=== PATIENT | male | born 1970 | race Caucasian/White ===

== ENCOUNTER 2019-08-25 10:16 | Outpatient (CLI) | payer OTHER, SELFPAY ==
--- NOTE | 2019-08-25 10:25 | EST_ITS ---
Patient Info Name: Elliot Cancino Age: 49 years : 1970 Gender: Male Ht: 72 in Wt: 245 lbs BSA: 2.41 m2 Exam Date: 08/25/2019 10:33 AM Exam Location: [facility] ([place] Stress Patient Status: Outpatient Admit Date: 08/25/2019 Staff Ordering Physician: Delvis Salazar DO Attending Provider: Delvis Salazar DO Exercise Technologist: Demi Mcpherson RDCS Exercise Physician: Jorge Gomez DO Exam Type: CA stress test treadmill Study Info Indications R07.89 - Other chest pain A treadmill exercise stress test was performed. Summary 1. 1. Negative Eric exercise stress test for ischemic ST changes by ECG criteria. 2. 2. Good functional capacity, achieving 10 METs of workload. 3. 3. Appropriate HR response to exercise. 4. 4. Appropriate HR recovery at 1 minute post exercise. 5. 5. No imaging with stress testing. 6. 6. Patient informed of the above results. Protocol: Eric Stress ECG Details Stage: REST Duration (min): 5 min : 40 sec Speed (mph): 0.0 Grade (%): 0 HR (bpm): 66 SBP (mmHg): 135 DBP (mmHg): 91 METS: --- Stage: REST Duration (min): 23 min : 10 sec Speed (mph): 0.0 Grade (%): 0 HR (bpm): 74 SBP (mmHg): 135 DBP (mmHg): 91 METS: --- Stage: STAGE 1 Duration (min): 1 min : 0 sec Speed (mph): 1.7 Grade (%): 10 HR (bpm): 106 SBP (mmHg): 135 DBP (mmHg): 91 METS: --- Stage: STAGE 1 Duration (min): 2 min : 0 sec Speed (mph): 1.7 Grade (%): 10 HR (bpm): 114 SBP (mmHg): 135 DBP (mmHg): 91 METS: --- Stage: STAGE 1 Duration (min): 3 min : 0 sec Speed (mph): 1.7 Grade (%): 10 HR (bpm): 117 SBP (mmHg): 183 DBP (mmHg): 92 METS: --- Stage: STAGE 2 Duration (min): 1 min : 0 sec Speed (mph): 2.5 Grade (%): 12 HR (bpm): 129 SBP (mmHg): 183 DBP (mmHg): 92 METS: --- Stage: STAGE 2 Duration (min): 2 min : 0 sec Speed (mph): 2.5 Grade (%): 12 HR (bpm): 142 SBP (mmHg): 165 DBP (mmHg): 86 METS: --- Stage: STAGE 2 Duration (min): 3 min : 0 sec Speed (mph): 2.5 Grade (%): 12 HR (bpm): 151 SBP (mmHg): 165 DBP (mmHg): 86 METS: --- Stage: STAGE 3 Duration (min): 1 min : 0 sec Speed (mph): 3.4 Grade (%): 14 HR (bpm): 156 SBP (mmHg): 156 DBP (mmHg): 96 METS: --- Stage: STAGE 3 Duration (min): 2 min : 0 sec Speed (mph): 3.4 Grade (%): 14 HR (bpm): 163 SBP (mmHg): 156 DBP (mmHg): 96 METS: --- Stage: STAGE 3 Duration (min): 3 min : 0 sec Speed (mph): 3.4 Grade (%): 14 HR (bpm): 167 SBP (mmHg): 185 DBP (mmHg): 84 METS: --- Stage: RECOVERY Duration (min): 0 min : 59 sec Speed (mph): 0.0 Grade (%): 0 HR (bpm): 133 SBP (mmHg): 145 DBP (mmHg): 82 METS: --- Stage: RECOVERY Duration (min): 1 min : 59 sec Speed (mph):
== END 2019-08-25 10:17 | disposition home or self-care (01) ==
PROVIDERS: PCP Internal Medicine; Visit Provider Internal Medicine
DX: R07.9 Chest pain, unspecified (principal)
CPT/HCPCS: 93017

== ENCOUNTER 2022-09-30 08:13 | Outpatient (CLI) | payer BC, SELFPAY ==
--- NOTE | 2022-10-17 17:36 | WPDHOMESLEEP ---
Sleep Study - Home Unattended Date of Study: 09/30/22 Ordering Provider: Delvis Salazar DO Interpreting Provider: Kimberly Coronel MD Home Sleep Study Type: Watch PAT Height: 1.85 m Weight: 117.934 kg Body Mass Index: 34.2 Neck Circumference (inches): 17.5 [place]: 9 Reason for Sleep Study Witnessed apneas, snoring Sleep History Elliot Cancino is a 52-year-old male with hypertension, hypogonadism, erectile dysfunction and lichen planus that had a sleep study ordered by his primary care for evaluation of sleep apnea. The patient rarely awakens from sleep short of breath. He constantly awakens at night with heartburn, belching or cough. He constantly snores loudly enough that others complain. He constantly has trouble sleeping when he has a cold. He occasionally wakes up gasping for air throughout the night. He constantly has breathing problems at night observed by himself or others. He rarely sweats excessively at night. He denies having heart palpitations or irregular heartbeats during the night. He denies falling asleep during the day and while driving. Denies sleep paralysis and cataplexy. He denies having trouble at school or work due to sleepiness. He occasionally experiences vivid dreamlike scenes upon awakening or falling asleep. He denies feeling afraid of going to sleep. He rarely has nightmares. He rarely remembers his dreams. He occasionally has thoughts racing through his mind. He denies feeling sad or depressed. He rarely has anxiety. He rarely has muscular tension. He rarely notices parts of his body jerk. He denies kicking during the night. He denies having crawling and aching feelings in his legs and denies having leg pain during the night. He denies grinding his teeth during sleep. He rarely awakens with morning jaw pain. He is rarely bothered by pain during the day and never awakened by pain during the night. He occasionally wakes up feeling stiff in the morning. He occasionally wakes up with sore or achy muscles. He occasionally wakes up with pain in the neck, spine or other joints. He goes to bed between 9-10 p.m. on both weekdays and weekends. He is able to fall asleep quickly. He wakes up 1-2 times throughout the night to urinate and is able to fall back asleep within 10 minutes. He wakes up at 5:15 a.m. on weekdays and between 6-8 a.m. on the weekends. He typically gets 4-5 hours of sleep per night. He will stay in bed for no longer than 10 minutes after waking up in the morning. He currently lives with his girlfriend and her 2 children. He does not consume any caffeinated beverages within 2 hours of bedtime. He does not engage in physical exercise before bedtime. He will watch television before falling asleep. He denies taking naps in the afternoon or the evening. He consumes 4 caffeinated beverages throughout the day. He will consume 2-4 beers or alcoholic beverages if he does drink that day. He denies tobacco and recreational drug use. [facility] Past Medical History Medical History Erectile dysfunction Hypertension Hypogonadism in male Lichen planus Lipoma of extremity Family History Family History Father Psoriasis Acoustic neuroma Mother No problems noted. Grandparent , 85 Malignant neoplasm of prostate, Onset Age: 85 Social History Social History Smoking status: Never smoker Alcohol intake: current Drinks per week: 3 Alcohol use details: drinks daily Lack of Transportation: No Lack of Food: Never True Current Housing: I Have Housing Concerned About Future Housing: No Difficulty Paying Gas/Electric Bills: No Difficulty Paying for Meds: No Currently Unemployed: No Education: Associate Degree Difficulty w/ Childcare or Family Care: No Medications Home Medications Medication Instructions Recorded Co
[2022-10-22 13:18] VITALS: BMI 34.2
== END 2022-10-01 09:32 | disposition home or self-care (01) ==
LOC: ANHCSM 08:14
PROVIDERS: PCP Internal Medicine; Visit Provider Internal Medicine
DX: G47.33 Obstructive sleep apnea (adult) (pediatric) (principal); G47.19 Other hypersomnia; I10 Essential (primary) hypertension
CPT/HCPCS: 95800